=== PATIENT | male | born 1995 | race American Indian/Alaskan Native ===

== ENCOUNTER 2017-11-12 11:08 | Emergency (ER) | payer BC, OTHER ==
[2017-11-12] MEDS ORDERED: ACTIDOSE-AQUA PO ONE (11:23)
[2017-11-12] MEDS ORDERED: NACL 0.9% 1000 ML 1,000 ML IV ONE ×2 (11:27→12:23)
--- NOTE | 2017-11-12 11:28 | Emergency Department Report ---
HPI - General Chief Complaint: Overdose Time Seen by Provider: 11/12/17 11:22 - HPI HPI: The patient is a 21-year-old male presents for evaluation of mental health. The patient reports experiencing constant severe sadness for the past one week, exacerbated by loss of a friend, and associated with suicidal ideation for the past one day. He admits to ingesting 10 500 mg Tylenol tablets approximately one hour prior to arrival. The patient denies fever, chest pain, dyspnea, abdominal pain, diarrhea, blood in the stool, dark tarry stool, dysuria, hematuria, flank pain, suicidal ideations, or hallucinations. ED Past Medical Hx - Past Medical History Hx Asthma: Yes - Surgical History Past Surgical History?: No - Social History Smoking Status: Current Every Day Smoker Substance Use Type: Alcohol, Marijuana, Other ED Review of Systems ROS: Stated complaint: MH EVAL Other details as noted in HPI Constitutional: denies: fever ENT: denies: throat or neck pain Respiratory: denies: cough, shortness of breath Cardiovascular: denies: chest pain Endocrine: denies unexplained weight loss or gain Gastrointestinal: denies: abdominal pain, nausea Genitourinary: denies: dysuria Musculoskeletal: denies: leg swelling Skin: denies: rash Neurological: denies: headache Hematological/Lymphatic: denies: easy bleeding or easy bruising Psych: reports sadness or hopelessness Physical Exam - Physical Exam Vital Signs: Vital Signs 11/12/17 11:14 Temperature 97.8 F Pulse Rate 97 H Respiratory 16 Rate Blood Pressure 132/82 O2 Sat by Pulse 98 Oximetry Physical Exam: General: well-nourished, well-developed, no acute distress Head: Normocephalic, atraumatic Eyes: normal sclera ENT: Mucous membranes are pale and dry Neck: trachea midline, neck supple, No neck stiffness, no cervical adenopathy Respiratory: Breath sounds equal bilaterally, no wheezing, rales, or rhonchi Cardio: S1 and S2 present, no murmurs, rubs, gallops, capillary refill is delayed Abdomen: Normoactive bowel sounds, soft abdomen, no rigidity, no guarding or rebound tenderness Musc: No pitting edema Skin: No rash Neuro: no facial drooping, normal speech Psych: Flat affect, poor insight, depressed mood, positive suicidal ideation ED Course Vital Signs 11/12/17 11:14 Temperature 97.8 F Pulse Rate 97 H Respiratory 16 Rate Blood Pressure 132/82 O2 Sat by Pulse 98 Oximetry ED Medical Decision Making - Lab Data Result diagrams: 11/12/17 11:22 11/12/17 11:22 - Medical Decision Making The patient was seen and examined by myself. The patient is placed on a equipment monitor phototypesetting and continuous pulse ox. On initial evaluation, the patient was found to be in no distress. Evaluation orders were placed. The patient is given 1 L normal saline fluid bolus for treatment of dehydration. Lab results reveal positive Tylenol level 15, although not significantly elevated, and elevated hemoglobin and hematocrit, consistent with hemoconcentration and exam findings of dehydration, and otherwise labs were grossly unremarkable including normal troponin level. Repeat Tylenol level will be obtained at 4 hour time limit post ingestion. Tylenol level is down trending and the patient is medically clear. Mental health is consulted. Mental health evaluates the patient and agrees that the patient is at risk of harm to self. A 1013 is completed. The patient will be admitted to a psychiatric facility once bed placement is obtained. Critical care attestation.: If time is entered above; I have spent that time in minutes in the direct care of this critically ill patient, excluding procedure time. ED Disposition Clinical Impression: Dehydration Tylenol overdose Qualifiers: Encounter type: initial encounter Injury intent: intentional self-harm Qualified Code(s): T39.1X2A - Poisoning by 4-Aminophenol derivatives, intentional self-harm, initial encounter Suicidal behavior Qualifiers: Attempted self-injury: with attempted self-injury Qualified Code(s): T14.91XA - Suicide attempt, initial encounter Disposition: -09 OP ADMIT IP TO THIS HOSP Is pt being admited?: No Does the pt Need Aspirin: No Condition: Stable Referrals: PRIMARY CARE, [Primary Care Provider] - 3-5 Days Time of Disposition: 11:28
[2017-11-12 11:46] LABS: Basophils % (Auto) 0.6 % (0.0-1.8); Eosinophils # (Auto) 0.2 K/mm3 (0.0-0.4); Eosinophils % (Auto) 4.9 % (0.0-4.3); Hematocrit 47.9 % (35.5-45.6); Hemoglobin 15.9 gm/dl (11.8-15.2); Mean Corpuscular HGB Conc 33 % (32-34); Mean Corpuscular Hemoglobin 28 pg (28-32); Mean Corpuscular Volume 85 fl (84-94); Monocytes # (Auto) 0.4 K/mm3 (0.0-0.8); Monocytes % (Auto) 13.1 % (0.0-7.3); Platelet Count 162 K/mm3 (140-440); Red Blood Count 5.64 M/mm3 (3.65-5.03); Red Cell Distribution Width 13.1 % (13.2-15.2)
[2017-11-12 11:55] LABS: BUN/Creatinine Ratio 14; Blood Urea Nitrogen 10 mg/dL (9-20); Calcium 9.6 mg/dL (8.4-10.2); Hemolysis Index 11
[2017-11-12 12:15] LABS: Bacteria,Urine 1+ /HPF (Negative); Bilirubin,Urine NEG (Negative); Blood,Urine NEG (Negative); Color,Urine Yellow (Yellow); Mucus,Urine FEW /HPF; Nitrite,Urine NEG (Negative); Protein,Urine <15 mg/dL mg/dL (Negative); WBC,Urine < 1.0 /HPF (0.0-6.0)
[2017-11-12 12:24] LABS: Amphetamine Screen,Urine PRESUMPTIVE NEGATIVE; Cocaine Screen,Urine PRESUMPTIVE NEGATIVE; Methadone Screen,Urine PRESUMPTIVE NEGATIVE; Opiate Screen,Urine PRESUMPTIVE NEGATIVE
[2017-11-12 12:37] LABS: Albumin 4.7 g/dL (3.9-5); Bilirubin,Direct 0.2 mg/dL (0-0.2)
[2017-11-12 12:38] LABS: Benzodiazepines Screen,Urine PRESUMPTIVE POSITIVE; Cannabinoid Screen,Urine PRESUMPTIVE POSITIVE
[2017-11-12] MEDS ORDERED: MILK OF MAGNESIA PO PRN (19:53)
[2017-11-12] MEDS ORDERED: ALUM-MAG HYDROX-SIMETH 200-200-20MG/5ML PO PRN (19:53)
[2017-11-12] MEDS ORDERED: TYLENOL PO PRN (19:53)
--- NOTE | 2017-11-13 10:45 | Consultation ---
History of Present Illness - Reason for Consult Consult date: 11/13/17 Reason for consult: Mental Health Evaluation Requesting physician: SUDHA ESTEBAN - Chief Complaint Chief complaint: "I don't know what is wrong with me" - History of Present Psychiatric Illness The patient is a 21-year-old male presents for evaluation of mental health. Today the patient is calm and cooperative during the assessment. His thought content was disorganized during the interview. He stated losing "friendships" with some people in [place] He stated that he have no idea why he felt suicidal yesterday, other than the lack of sleep and feeling lonely. He admitted to taking multiple Tylenol pills to "sleep and never to wake up." He stated not sleeping for 3 days prior to taking the Tylenol pills. He stated that he "hated" the way he felt yesterday. He acknowledged being irritable recently when asked. The patient is positive for benzos. He stated that he [place] Xanax [place] the [place]streets" to help he calm his "nerves." He stated taking a Xanax 2 days ago. He denies SI/HI's and AVH's. He admitted erratic sleep and a "okay" appetite. He admitted to smoking marijuana often. He denies alcohol consumption (etoh). Medications and Allergies Allergies Allergy/AdvReac Type Severity Reaction Status Date / Time No Known Allergies Allergy Unverified 11/12/17 11:14 Home Medications Medication Instructions Recorded Confirmed Last Taken Type ALBUTEROL Inhaler [Proair] 2 puff IH QID PRN 11/12/17 11/12/17 Unknown History Active Meds: Active Medications Acetaminophen (Tylenol) 650 mg PO Q4HR PRN PRN Reason: Pain MILD(1-3)/Fever >100.5/MAGUIRE Al Hydrox/Mg Hydrox/Simethicone (Alum-Mag Hydrox-Simeth [id number]/5ml) 30 ml PO Q4HR PRN PRN Reason: Indigestion Magnesium Hydroxide (Milk Of Magnesia) 30 ml PO Q12HR PRN PRN Reason: Constipation Past psychiatric history - Past Medical History Past Medical History: No medical history Past Surgical History: No surgical history - past Psychiatric treatment and history psychiatric treatment history: Denies a psy hx and fam psy hx. - Social History Social history: lives with family Mental Status Exam - Vital signs Last Vital Signs Temp 98.6 F 11/13/17 01:45 Pulse 77 11/13/17 01:45 Resp 18 11/13/17 01:45 BP 130/65 11/13/17 01:45 Pulse Ox 99 11/13/17 01:45 - Exam Narrative exam: MSE: Appearance: calm, cooperative Behavior: regular eye contact Speech: regular rate and tone Mood: "okay" Affect: flat Thought Process: circumstantial Thought Content: denies SI/HI's and AVH's, disorganized Motor Activity: ambulatory Cognition: A/O x3 Insight: variable Judgment: variable Results Result Diagrams: 11/12/17 11:22 11/12/17 11:22 Abnormal lab results 11/12/17 11/12/17 11/12/17 Range/Units 11:22 11:22 11:22 WBC 3.4 L (4.5-11.0) K/mm3 RBC 5.64 H (3.65-5.03) M/mm3 Hgb 15.9 H (11.8-15.2) gm/dl Hct 47.9 H (35.5-45.6) % RDW 13.1 L (13.2-15.2) % [place] % (Auto) 13.1 H (0.0-7.3) % Eos % (Auto) 4.9 H (0.0-4.3) % Lymph # 1.0 L (1.2-5.4) K/mm3 Creatinine 0.7 L (0.8-1.5) mg/dL AST (5-40) units/L ALT (7-56) units/L Salicylates < 0.3 L (2.8-20.0) mg/dL 11/12/17 Range/Units 11:22 WBC (4.5-11.0) K/mm3 RBC (3.65-5.03) M/mm3 Hgb (11.8-15.2) gm/dl Hct (35.5-45.6) % RDW (13.2-15.2) % [place] % (Auto) (0.0-7.3) % Eos % (Auto) (0.0-4.3) % Lymph # (1.2-5.4) K/mm3 Creatinine (0.8-1.5) mg/dL AST 69 H (5-40) units/L ALT 95 H (7-56) units/L Salicylates (2.8-20.0) mg/dL All other labs normal. Assessment and Plan Assessment and plan: Impression: Unspecified Mood DO. Cannabis Use DO. Today the patient is calm and cooperative during the assessment. Tylenol level 15.0 on admission. The patient positive for benzos. DDx: Bipolar DO Recommendation/Plan: Continue 1013 with placement to inpatient psy services. Start Seroquel 200 mg PO HS for mood. Discussed possible metabolic side effects of Seroquel with patient. Discussed generalized coping skills with patient. Monitor the patient for benzos withdrawals.
--- NOTE | 2017-11-14 06:19 | Emergency Department Report ---
Blank Doc - Documentation Documentation: I was approached about this patient as there was some conflicting information about disposition. The patient was listed as a 1013 and there may have been an original 1013 form signed but it cannot be found at this point. The ER physician's note says disposition is inpatient admission but the medical decision making portion says that the patient is cleared for inpatient psychiatric treatment. Patient is currently in bed 12 and has been seen resting comfortably in no acute distress. Vital signs stable. He had a previous medical workup that showed no significant sequela of his overdose/ ingestion. No new labs have been ordered. He has been seen by psych who plans to continue to seek inpatient psychiatric placement. I have signed a 1013 secondary to the suicidal ideations and attempt.
--- NOTE | 2017-11-14 18:53 | Progress Note ---
Subjective - Reason for Consult Consult date: 11/14/17 Reason for consult: Psychiatry Follow-up - Chief Complaint Chief complaint: "I will do better" The patient is a 21-year-old male presents for evaluation of mental health. Today the patient is calm and cooperative during the assessment. He stated that he feels much better "mentally and physically" today than previous days. He stated that he plan to get a job once discharged. He denies SI/HI's and AVH's. He denies any side effects of his medications. Mental Status Exam - Vital signs Last Vital Signs Temp 97.8 F 11/14/17 12:18 Pulse 85 11/14/17 12:18 Resp 20 11/14/17 12:21 BP 129/48 11/14/17 12:18 Pulse Ox 99 11/14/17 12:21 - Exam Narrative exam: MSE: Appearance: calm, cooperative Behavior: regular eye contact Speech: regular rate and tone Mood: "okay" Affect: congruent to mood Thought Process: logical Thought Content: denies SI/HI's and AVH's Motor Activity: ambulatory Cognition: A/O x3 Insight: fair Judgment: fair Assessment and Plan Impression: Unspecified Mood DO. Cannabis Use DO. Today the patient is calm and cooperative during the assessment. Tylenol level 15.0 on admission. The patient positive for benzos. DDx: Bipolar DO Recommendation/Plan: Evaluate 1013 in 24 hours to determine proper dispo. Continue Seroquel 200 mg PO HS for mood. Discussed possible metabolic side effects of Seroquel with patient. Discussed generalized coping skills with patient. Monitor the patient for benzos withdrawals.
--- NOTE | 2017-11-15 15:53 | Progress Note ---
Subjective - Reason for Consult Consult date: 11/15/17 Reason for consult: follow up - Chief Complaint Chief complaint: "I want to go home." The patient is a 21-year-old male who presented for evaluation of mental health. Today the patient is calm and cooperative during the assessment. He stated that he feels much better today than previous days. He denies SI/HI's and AVH's. He denies any side effects of his medications. He discussed how he took more than 5 tylenol and less than 15 tablets. Mental Status Exam - Vital signs Last Vital Signs Temp 98.7 F 11/14/17 22:00 Pulse 92 H 11/14/17 22:00 Resp 18 11/14/17 22:00 BP 126/68 11/14/17 22:00 Pulse Ox 98 11/14/17 22:00 - Exam Narrative exam: MSE: Appearance: calm, cooperative Behavior: regular eye contact Speech: regular rate and tone Mood: "okay" Affect: congruent to mood Thought Process: logical Thought Content: denies SI/HI's and AVH's Motor Activity: ambulatory Cognition: A/O x3 Insight: fair Judgment: fair Assessment and Plan Impression: Unspecified Mood DO. Cannabis Use DO. Today the patient is calm and cooperative during the assessment. Tylenol level 15.0 on admission. The patient positive for benzos. No evidence for benzo withdrawals. DDx: Bipolar DO Recommendation/Plan: Evaluate 1013 in 24 hours to determine proper dispo. Continue Seroquel 200 mg PO HS for mood. Repeat tylenol level and LFTs. In order to consider rescinding the 1013, a crisis safety plan is needed.
[2017-11-16 06:35] LABS: Alanine Aminotransferase 75 units/L (7-56); Albumin 4.2 g/dL (3.9-5)
[2017-11-16 07:19] LABS: Bilirubin,Direct < 0.2 mg/dL (0-0.2)
--- NOTE | 2017-11-16 16:23 | Progress Note ---
Subjective - Reason for Consult Consult date: 11/16/17 Reason for consult: follow up - Chief Complaint Chief complaint: "I'm good." The patient is a 21-year-old male who presented for evaluation of mental health. Today the patient is calm and cooperative during the assessment. He stated that he feels much better today than previous days. He denies SI/HI's and AVH's. He denies any side effects of his medications. He discussed how he took more than 5 tylenol and less than 15 tablets. Tylenol level is 15 and LFTs are improved. Mental Status Exam - Vital signs Last Vital Signs Temp 98.3 F 11/16/17 10:32 Pulse 85 11/16/17 10:32 Resp 20 11/16/17 10:32 BP 138/71 11/16/17 10:32 Pulse Ox 100 11/16/17 10:32 - Exam Narrative exam: MSE: Appearance: calm, cooperative Behavior: regular eye contact Speech: regular rate and tone Mood: "okay" Affect: congruent to mood Thought Process: logical Thought Content: denies SI/HI's and AVH's Motor Activity: ambulatory Cognition: A/O x3 Insight: fair Judgment: fair Assessment and Plan Impression: Unspecified Mood DO. Cannabis Use DO. Today the patient is calm and cooperative during the assessment. Tylenol level 15.0 on admission. The patient positive for benzos. No evidence for benzo withdrawals. DDx: Bipolar DO Recommendation/Plan: Evaluate 1013 in 24 hours to determine proper dispo. Continue Seroquel 200 mg PO HS for mood. In order to consider rescinding the 1013, a crisis safety plan is needed.
--- NOTE | 2017-11-17 11:09 | Progress Note ---
Subjective - Reason for Consult Consult date: 11/17/17 Reason for consult: Psychiatry Follow-up - Chief Complaint Chief complaint: "I'm good." The patient is a 21-year-old male who presented for evaluation of mental health. Today the patient is calm and cooperative during the assessment. He stated that he want to complete his GED/HS Diploma and get a job once discharged. He stated that he would follow up with outpatient psy services. He denies SI/HI's and AVH's. He denies any side effects of his medication. Per collateral information from Martita Hodges at [phone] the patient's mother she stated that she has noticed her son not sleeping and being isolated the past month. She denies any previous suicide attempts by her son. She stated that he son would benefit from outpatient psy services. She stated that she can pick him up once discharged. Mental Status Exam - Vital signs Last Vital Signs Temp 98.6 F 11/16/17 20:00 Pulse 100 H 11/16/17 20:00 Resp 17 11/16/17 20:00 BP 146/88 11/16/17 20:00 Pulse Ox 97 11/16/17 20:00 - Exam Narrative exam: MSE: Appearance: calm, cooperative Behavior: regular eye contact Speech: regular rate and tone Mood: "okay" Affect: congruent to mood Thought Process: linear Thought Content: denies SI/HI's and AVH's Motor Activity: ambulatory Cognition: A/O x3 Insight: fair Judgment: fair Assessment and Plan Impression: Unspecified Mood DO. Cannabis Use DO. Today the patient is calm and cooperative during the assessment. Tylenol level 15.0 on admission. The patient positive for benzos. The patient is no threat to self. DDx: Bipolar DO I. This screening and assessment is based on information collected from the following sources: II. SUICIDE RISK SCREENING (within last 30 days): A.) Suicidal thoughts/behaviors: Yes SUICIDE RISK ASSESSMENT III. FACTORS THAT INCREASE RISK: A.) Demographic and Substance Use Factors: None B.) Current/Recent Factors (within past 3 months): Psychosocial/Environmental Factors: Unemployed Physical Illness: None Cognitive/Psychological Factors: None C.) Historical Factors: None D.) Diagnostic/Symptom/Treatment Factors: None E.) Acute Risk Factor Severity (DESC; MILD/MOD/SEVERE): Mild Other factors for this individual that increase risk: None IV. FACTORS THAT DECREASE RISK: Resilience/Protective Factors: Patient want to start working and return to school to complete his GED/HS Diploma Other factors for this individual that decrease risk: Patient denies a desire to harm self V. Clinician's Formulation of Risk and Determination of level of Care: This is a 21-year-old AA male who took multiple pills to kill himself. He stated that he was going through a lot and not sleeping, so he decided to take multiple pills so he would not wake up. He stated that he should have reached out for help by calling a crisis hotline. He stated that he will follow-up with outpatient services once discharged. Since being hospitalized the patient has consistently denied the desire to harm himself. Additionally, he has become insightful about how to better address his issues. Patient is not impaired by substance. He is able to take care of her ADLs and is not at imminent risk of harm to self or others. Consequently, it is the opinion of the treatment team that the patient is at low risk of suicide and does not meet criteria to continue an involuntary psychiatric hold. Estimation of Imminent Risk: Low due to the above explanation. Determination of Level of Care based on Suicide Risk: Outpatient follow-up. Narrative description of clinical reasoning. (This must be completed on all patients): . Plan and Interventions based on Suicide Risk: This patient will likely be stepped down to an outpatient mental health center in the community upon discharge and follow-up within 7 days of his discharge from the hospital. VII. Discharge/After Hours Support Plan: Patient can return back to the ER, call 911 or crisis line if symptoms of depression, anxiety, suicidality return. Recommendation/Plan: Rescind 1013. Continue Seroquel 200 mg PO HS for mood. Discussed possible metabolic side effects of Seroquel with patient. Discussed generalized coping skills with patient. Safety contract completed with the patient. The given outpatient psy services with [facility].
[2017-11-17 18:26] VITALS: BP 158/73
== END 2017-11-17 18:31 | disposition admitted as inpatient to this hospital (09) ==
LOC: EEVIPCON 11:08 → ED 11:08
DX: T39.1X2A Poisoning by 4-Aminophenol derivatives, intentional self-harm, initial encounter (principal); E86.0 Dehydration; J45.909 Unspecified asthma, uncomplicated; F17.200 Nicotine dependence, unspecified, uncomplicated; F12.10 Cannabis abuse, uncomplicated; Y92.89 Other specified places as the place of occurrence of the external cause
CPT/HCPCS: 36415; 80048; 80074; 80307; 81001; 83690; 85025; 96360; 96361; 99285; G0480; J7030; 80320

== ENCOUNTER 2022-01-03 12:54 | Emergency (ER) | payer BC ==
[2022-01-03 14:26] VITALS: BP 175/87
--- NOTE | 2022-01-03 14:50 | Emergency Department Report ---
ED General Adult HPI - General Chief complaint: Medical Clearance Stated complaint: TB TEST Time Seen by Provider: 01/03/22 14:22 Source: patient Mode of arrival: Ambulatory Limitations: No Limitations - History of Present Illness Initial comments: 26 year old male presents to ED for CXR. Patient was sent by [facility] for cxr after having a + serum tuberculosis test. Patient states that he found out about the results yesterday. I spoke to the nurse at the detox facility, and it was requested by the medical anthropologist of the facility that p atient come to the ED chest x-ray. Patient denies ever having a positive TB test in the past. He denies any symptoms. MD Complaint: Sent for cxr after positive TB test -: days(s) (1) - Related Data Home Medications Medication Instructions Recorded Confirmed Last Taken Albuterol Mdi (or & Nicu Only) 2 puff IH QID PRN 11/12/17 11/12/17 Unknown [Proair] Allergies Allergy/AdvReac Type Severity Reaction Status Date / Time No Known Allergies Allergy Unverified 11/12/17 11:14 ED Review of Systems ROS: Stated complaint: TB TEST Other details as noted in HPI Comment: All other systems reviewed and negative Constitutional: denies: chills, fever ENT: denies: ear pain, throat pain, dental pain, hearing loss, epistaxis, congestion Respiratory: denies: cough, shortness of breath, wheezing Cardiovascular: denies: chest pain, palpitations, dyspnea on exertion, edema, syncope, paroxysmal nocturnal dyspnea Gastrointestinal: denies: abdominal pain, nausea, diarrhea, constipation, hematemesis, melena, hematochezia Genitourinary: denies: urgency, dysuria, frequency, hematuria, discharge, testicular pain, testicular mass Musculoskeletal: denies: back pain, joint swelling, arthralgia Skin: denies: rash, lesions, change in color, change in hair/nails, pruritus Neurological: denies: headache, weakness, numbness, paresthesias, abnormal gait, vertigo Psychiatric: denies: anxiety, depression, auditory hallucinations, visual hallucinations, homicidal thoughts, suicidal thoughts Hematological/Lymphatic: denies: easy bleeding, easy bruising, swollen glands ED Past Medical Hx - Past Medical History Hx Asthma: Yes - Surgical History Additional Surgical History: laceration to liver requiring cauterization - Social History Smoking Status: Current Some Day Smoker Substance Use Type: None - Medications Home Medications: Home Medications Medication Instructions Recorded Confirmed Last Taken Type Albuterol Mdi (or & Nicu Only) 2 puff IH QID PRN 11/12/17 11/12/17 Unknown History [Proair] ED Physical Exam - General Limitations: No Limitations General appearance: alert, in no apparent distress - Head Head exam: Present: atraumatic, normocephalic, normal inspection - Eye Eye exam: Present: normal appearance, PERRL, EOMI Pupils: Present: normal accommodation - Neck Neck exam: Present: normal inspection, full ROM. Absent: meningismus - Respiratory Respiratory exam: Present: normal lung sounds bilaterally. Absent: respiratory distress, wheezes, rales, rhonchi - Cardiovascular Cardiovascular Exam: Present: regular rate, normal rhythm, normal heart sounds - Neurological Exam Neurological exam: Present: alert, oriented X3, CN II-XII intact, normal gait - Psychiatric Psychiatric exam: Present: normal affect, normal mood - Skin Skin exam: Present: intact ED Course Vital Signs 01/03/22 14:25 Temperature 98.1 F Pulse Rate 75 Respiratory 18 Rate Blood Pressure 175/87 [Right] O2 Sat by Pulse 100 Oximetry ED Medical Decision Making - Radiology Data Radiology results: report reviewed Patient: NIKKIE CULP MR#: [id number] : 1995 Acct:[id number] Age/Sex: 26 / M ADM Date: 01/03/22 Loc: ED Attending Dr: Ordering Physician: MAURICE WALTON Date of Service: 01/03/22 Procedure(s): XR chest routine 2V Accession Number(s): [id number] cc: MAURICE WALTON Fluoro Time In Minutes: CHEST 2 VIEWS INDICATION / CLINICAL INFORMATION: RO TB STUDY TIME: 1502 COMPARISON: None available. FINDINGS: SUPPORT DEVICES: None. HEART / MEDIASTINUM: No significant abnormality. LUNGS / PLEURA: No significant acute pulmonary or pleural abnormality. No evidence of granulomatous disease exposure is seen. No pneumothorax. ADDITIONAL FINDINGS: No significant additional findings. Signer Name: Valeriano Huizar MD Signed: 01/03/2022 3:03 PM Workstation Name: [id number] Transcribed By: GJ Dictated By: Valeriano Huizar MD Electronically Authenticated By: Valeriano Huizar MD Signed Date/Time: 01/03/22 1503 DD/ 1502 TD/TT: Critical care attestation.: If time is entered above; I have spent that time in minutes in the direct care of this critically ill patient, excluding procedure time. ED Disposition Clinical Impression: Normal chest x-ray, Positive TB test Disposition: HOME / SELF CARE / HOMELESS Is pt being admited?: No Does the pt Need Aspirin: No Condition: Stable Instructions: Tuberculin Skin Test, Tuberculosis, [id number] Additional Instructions: Your chest x-ray today was normal. Follow-up with your detox facility. Return to the ER if anything worsens. Referrals: PRIMARY CAREMD [Referring] - 3-5 Days Time of Disposition: 15:27
--- NOTE | 2022-01-03 15:08 | XRay Report ---
CHEST 2 VIEWS INDICATION / CLINICAL INFORMATION: RO TB STUDY TIME: 1502 COMPARISON: None available. FINDINGS: SUPPORT DEVICES: None. HEART / MEDIASTINUM: No significant abnormality. LUNGS / PLEURA: No significant acute pulmonary or pleural abnormality. No evidence of granulomatous d isease exposure is seen. No pneumothorax. ADDITIONAL FINDINGS: No significant additional findings. Signer Name: Valeriano Huizar MD Signed: 01/03/2022 3:03 PM Workstation Name: [id number]
== END 2022-01-03 16:14 | disposition home or self-care (01) ==
LOC: ED 12:54
DX: R76.11 Nonspecific reaction to tuberculin skin test without active tuberculosis (principal); Z13.83 Encounter for screening for respiratory disorder NEC; F17.200 Nicotine dependence, unspecified, uncomplicated; J45.909 Unspecified asthma, uncomplicated
CPT/HCPCS: 71046; 99282; 99283

== ENCOUNTER 2022-02-18 21:27 | Emergency (ER) | payer BC ==
[2022-02-19] MEDS ORDERED: hydrOXYzine PAMOATE 25 MG CAP PO ONE (01:59)
--- NOTE | 2022-02-19 02:37 | Emergency Department Report ---
ED General Adult HPI - General Chief complaint: Pain General Stated complaint: BODY TINGLING/JERKING Source: patient Mode of arrival: Ambulatory Limitations: No Limitations - History of Present Illness Initial comments: Patient is a 26-year-old -[place] male with a history of anxiety and depression who presents to the ED with complaint of persistent chest tightness, tingling sensation in the upper and lower extremities bilaterally, nausea and elevated heart rate for the last 1 week, worse in the last 2 days. Patient states that he is currently on an outpatient detox program for polysubstance abuse and currently taking Vistaril for anxiety. Patient denies dizziness, syncope, abdominal pain, fever, chills, cough, sore throat, change in vision, headache or back pain. MD Complaint: anxious, tingling arms and legs, chest tightness -: Sudden, week(s) (1) Location: chest, upper extremity (Tingling lower extremities bilaterally), lower extremity (Tingling lower extremities bilaterally) Severity scale (0 -10): 7 Quality: dull Consistency: intermittent Improves with: none Worsens with: none Associated Symptoms: denies other symptoms, chest pain (Chest tightness), nausea/vomiting. denies: confusion, cough, diaphoresis, fever/chills, headaches, malaise, rash, shortness of breath, weakness Treatments Prior to Arrival: none - Related Data Home Medications Medication Instructions Recorded Confirmed Last Taken Albuterol Mdi (or & Nicu Only) 2 puff IH QID PRN 11/12/17 11/12/17 Unknown [Proair] Previous Rx's Medication Instructions Recorded Last Taken Type hydrOXYzine PAMOATE [Vistaril] 25 mg PO Q8HR PRN #40 capsule 02/19/22 Unknown Rx Allergies Allergy/AdvReac Type Severity Reaction Status Date / Time griseofulvin Allergy Hives Verified 02/19/22 02:02 ED Review of Systems ROS: Stated complaint: BODY TINGLING/JERKING Other details as noted in HPI Constitutional: denies: chills, fever, malaise Eyes: denies: eye pain, eye discharge, vision change ENT: denies: ear pain, throat pain, congestion Respiratory: denies: cough, shortness of breath, wheezing Cardiovascular: palpitations. denies: chest pain Endocrine: no symptoms reported Gastrointestinal: nausea. denies: abdominal pain, vomiting, diarrhea Genitourinary: denies: urgency, dysuria Musculoskeletal: denies: back pain, joint swelling, arthralgia Skin: denies: rash, lesions Neurological: denies: headache, weakness, paresthesias Psychiatric: anxiety. denies: depression, auditory hallucinations, visual hallucinations, homicidal thoughts, suicidal thoughts Hematological/Lymphatic: denies: easy bleeding, easy bruising ED Past Medical Hx - Past Medical History Hx Psychiatric Treatment: Yes (Anxiety) Hx Asthma: Yes - Surgical History Additional Surgical History: laceration to liver requiring cauterization - Social History Smoking Status: Current Some Day Smoker Substance Use Type: None - Medications Home Medications: Home Medications Medication Instructions Recorded Confirmed Last Taken Type Albuterol Mdi (or & Nicu Only) 2 puff IH QID PRN 11/12/17 11/12/17 Unknown History [Proair] hydrOXYzine PAMOATE [Vistaril] 25 mg PO Q8HR PRN #40 capsule 02/19/22 Unknown Rx ED Physical Exam - General Limitations: No Limitations General appearance: alert, in no apparent distress, anxious - Head Head exam: Present: atraumatic, normocephalic, normal inspection - Eye Eye exam: Present: normal appearance, PERRL, EOMI Pupils: Present: normal accommodation - ENT ENT exam: Present: normal exam, normal orophraynx, mucous membranes moist, TM's normal bilaterally, normal external ear exam - Neck Neck exam: Present: normal inspection, full ROM - Respiratory Respiratory exam: Present: normal lung sounds bilaterally. Absent: respiratory distress, wheezes, rales, rhonchi, chest wall tenderness, accessory muscle use - Cardiovascular Cardiovascular Exam: Present: regular rate, normal rhythm, normal heart sounds. Absent: systolic murmur, diastolic murmur, rubs, gallop - GI/Abdominal GI/Abdominal exam: Present: soft, normal bowel sounds. Absent: tenderness, guarding, rebound, hyperactive bowel sounds, hypoactive bowel sounds, organomegaly, mass - Extremities Exam Extremities exam: Present: normal inspection, full ROM, normal capillary refill. Absent: tenderness, pedal edema, joint swelling - Back Exam Back exam: Present: normal inspection, full ROM. Absent: tenderness, CVA tenderness (R), CVA tenderness (L), muscle spasm, paraspinal tenderness, vertebral tenderness - Neurological Exam Neurological exam: Present: alert, oriented X3, CN II-XII intact, normal gait, reflexes normal - Psychiatric Psychiatric exam: Present: normal affect, normal mood, anxious - Skin Skin exam: Present: warm, dry, intact, normal color. Absent: rash ED Course Vital Signs 02/19/22 02:04 Temperature 98.4 F Pulse Rate 80 Respiratory 16 Rate Blood Pressure 149/84 [Left] O2 Sat by Pulse 97 Oximetry ED Medical Decision Making - Medical Decision Making This is a 26-year-old -[place] male with a history of anxiety and depression who presents to the ED with complaint of persistent chest tightness, tingling sensation in the upper and lower extremities bilaterally, nausea and elevated heart rate for the last 1 week, worse in the last 2 days. Patient states that he is currently on an outpatient detox program for polysubstance abuse and currently taking Vistaril for anxiety. In the ED, patient is alert and oriented x3 and is not in any distress. EKG shows normal sinus rhythm with a ventricular rate of [address] or T wave abnormalities. Patient symptoms are likely due to anxiety. Patient was treated in the ED with Vistaril 50 mg p.o. x1. Patient was also advised to continue with his substance abuse rehabilitation program. Patient was discharge home with a prescription of Vistaril and advised to follow-up with his primary care physician in 7 to 10 days for reevaluation or return to the ED immediately if symptoms get worse. - Differential Diagnosis Anxiety; depression; Critical care attestation.: If time is entered above; I have spent that time in minutes in the direct care of this critically ill patient, excluding procedure time. ED Disposition Clinical Impression: Anxiety as acute reaction to exceptional stress Disposition: 01 HOME / SELF CARE / HOMELESS Is pt being admited?: No Does the pt Need Aspirin: No Condition: Stable Instructions: Generalized Anxiety Disorder, Adult Additional Instructions: Take medication as advised, drink plenty of fluids and follow-up with your primary care physician in 7 to 10 days for reevaluation. Return to the ED immediately if symptoms get worse. Prescriptions: hydrOXYzine PAMOATE [Vistaril] 25 mg PO Q8HR PRN #40 capsule PRN Reason: Anxiety Referrals: [facility] [Provider Group] - 3-5 Days Time of Disposition: 02:38 Print Language: [place]AST [place]
[2022-02-19 03:30] VITALS: BP 137/86
--- NOTE | 2022-02-19 12:39 | Electrocardiograph Report ---
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
== END 2022-02-19 03:30 | disposition home or self-care (01) ==
LOC: ED 21:27
DX: F41.1 Generalized anxiety disorder (principal); F43.0 Acute stress reaction; F41.9 Anxiety disorder, unspecified; J45.909 Unspecified asthma, uncomplicated; Z98.890 Other specified postprocedural states; F17.290 Nicotine dependence, other tobacco product, uncomplicated; Z88.8 Allergy status to other drugs, medicaments and biological substances
CPT/HCPCS: 93005; 99282